=== PATIENT | male | born 1975 | race Caucasian/White ===

== ENCOUNTER 2016-12-14 21:07 | Emergency (ER) | payer BC ==
[~2016-12-14] VITALS: Ht 170.2 cm; Wt 114.0 kg
[2016-12-14 21:11] VITALS: BP 199/111; PULSE 100; RESP 18; TEMP 97.9; O2SAT 96
[2016-12-14] MEDS ORDERED: JANU50TA8 PO (21:28)
[2016-12-14] MEDS ORDERED: BYST10TA2 PO (21:28)
[2016-12-14] MEDS ORDERED: TESTPOW4 (21:28)
--- NOTE | 2016-12-14 21:44 | PD ---
HPI Chief Complaint: Skin Problem Time Seen by Provider: 21:27 Travel History International Travel<30 days: No Contact w/Intl Traveler<30days: No Traveled to known affect area: No History of Present Illness HPI Patient is a 41-year-old male who presents to emergency room with complaints of right thigh swelling. Patient reports that he normally gets testosterone injections every week and had his last injection on . Patient reports that when he had his left injection, they accidently "hit my leg vein" and caused a hematoma. Reports that since Wednesday, he has felt a bump to his anterior right thigh, reports that he thinks that this may be all testosterone oil but just wanted to make sure it was not an abscess. Patient reports no fevers or chills. Patient reports no pain to his thigh, or no increased warmth. Reports that he went to an urgent care center prior to coming to emergency room and was told to come to the emergency room for an ultrasound of his thigh for evaluation of possible abscess versus hematoma. Patient reports no calf tenderness, reports no pain at this time. Patient with no other complaints. Patient reports that he has had multiple testosterone injections in the past and has not had complications from this. [facility] Past Medical History Diabetes: Yes Patient Takes Glucophage: Yes Diminished Hearing: No Hypertension: Yes Immunizations Current: Yes Tetanus Vaccination: < 5 Years Influenza Vaccination: Yes Social History Alcohol Use: No Tobacco Use: No Substance Use: No Allergies-Medications (Allergen,Severity, Reaction): Coded Allergies: No Known Allergies (Unverified , 12/14/16) Reported Meds & Prescriptions Reported Meds & Active Scripts Active Bactrim DS (Sulfamethoxazole-Trimethoprim) 800-160 Mg Tab 1 Tab PO BID Reported Testosterone Cypionate (Testosterone Cypionate (Bulk)) 1 Pow Pow Janumet (Sitagliptin-Metformin) 50-1,000 Mg Tab 1 Tab PO BID Bystolic (Nebivolol) 10 Mg Tab 10 Mg PO DAILY Review of Systems General / Constitutional: No: Fever Eyes: No: Visual changes HENT: No: Headaches Cardiovascular: No: Chest Pain or Discomfort Respiratory: No: Shortness of Breath Gastrointestinal: No: Abdominal Pain Genitourinary: No: Dysuria Musculoskeletal: No: Pain Skin: No Rash Neurologic: No: Weakness Psychiatric: No: Depression Endocrine: No: Polydipsia Hematologic/Lymphatic: No: Easy Bruising Physical Exam Narrative GENERAL: Well-nourished, well-developed patient. SKIN: Focused skin assessment warm/dry. HEAD: Normocephalic. EYES: No scleral icterus. No injection or drainage. NECK: Supple, trachea midline. No JVD or lymphadenopathy. CARDIOVASCULAR: Regular rate and rhythm without murmurs, gallops, or rubs. RESPIRATORY: Breath sounds equal bilaterally. No accessory muscle use. GASTROINTESTINAL: Abdomen soft, non-tender, nondistended. MUSCULOSKELETAL: No cyanosis, or edema. Patient with contained swelling to right anterior thigh - no redness or erythema on exam, no calf tenderness, no obvious abscess on exam BACK: Nontender without obvious deformity. No CVA tenderness. Data Data Last Documented VS Vital Signs Date Time Temp Pulse Resp B/P Pulse Ox O2 Delivery O2 Flow Rate FiO2 12/14/16 21:11 97.9 100 18 199/111 96 Orders Us Leg Soft Tissue (12/14/16 ) MDM Medical Decision Making Medical Screen Exam Complete: Yes Emergency Medical Condition: Yes Interpretation(s) Vital Signs Date Time Temp Pulse Resp B/P Pulse Ox O2 Delivery O2 Flow Rate FiO2 12/14/16 21:11 97.9 100 18 199/111 96 Differential Diagnosis Abscess, hematoma, medication reaction, DVT Narrative Course 41-year-old male who presents to emergency room for evaluation of "lump" to anterior right thigh. Patient reports that he noticed this lump yesterday, reports that he did have a testosterone injection to his right anterior thigh on . Reports concern for possible abscess versus hematoma. Patient was sent to the emergency room by urgent care center for an ultrasound of his leg,. Patient nontoxic on evaluation, patient with no complaints. Patient with no signs of cellulitis or infection, patient with most likely a hematoma versus an abscess. An ultrasound of his soft tissue of his right thigh ordered for further evaluation of the symptoms. Last Impressions Lower Extremity Ultrasound 12/14/16 0000 Signed Impressions: Service Date/Time: Wednesday, December 14, 2016 22:08 - CONCLUSION: 2 small fluid collections as described above.. Sarthak Moses MD FACR Ultrasound of leg with 2 small fluid collections, most likely from injection site of testosterone. Patient with no signs of infection at this time. Patient with most likely hematoma to his right thigh from his testosterone injection. Plan to have patient follow up with his primary care doctor. Patient will return to ER as needed Diagnosis Primary Impression: Leg hematoma Qualified Code: S80.11XA - Leg hematoma, right, initial encounter Patient Instructions: General Instructions Additional Instructions: Please follow-up with your primary care doctor Return to emergency room as needed Return to the emergency room if symptoms worsen or progress Med/Other Pt SpecificInfo: Prescription(s) given Scripts Sulfamethoxazole-Trimethoprim (Bactrim DS)800-160 Mg Tab1 Tab PO BID #20 TAB Ref 0 Prov:Dora Hussein DO 12/14/16 Disposition: 01 DISCHARGE HOME Condition: Stable Dora Hussein DO Dec 14, 2016 21:44
[2016-12-14] MEDS ORDERED: CEPH-460 PO (22:15)
[2016-12-14] MEDS ORDERED: BACT800T5 PO (22:16)
--- NOTE | 2016-12-14 22:53 | RADHPO ---
EXAM DATE/TIME: 12/14/2016 22:08 [facility] COMPARISON: No previous studies available for comparison. INDICATIONS : Right thigh swelling after steroid injection at doctor's office on december 10, 2016. MEDICAL HISTORY : Diabetes mellitus type 2. SURGICAL HISTORY : Right arm surgery. ENCOUNTER: Initial ACUITY: 1 day PAIN SCORE: 2/10 LOCATION: Right anterior thigh. AREA EVALUATED: Right anterior mid thigh. FINDINGS: There are 2 small fluid collections as described above, nonspecific. This may well be related to the injection. Inflammatory process cannot be excluded. CONCLUSION: 2 small fluid collections as described above.. Sarthak Moses MD FACR on December 14, 2016 at 22:50 Board Certified Radiologist. This report was verified electronically.
[2016-12-14 23:07] VITALS: BP 138/84
== END 2016-12-14 23:13 | disposition home or self-care (01) ==
LOC: PHED 21:07
DX: S80.11XA Contusion of right lower leg, initial encounter (principal); I10 Essential (primary) hypertension; E11.9 Type 2 diabetes mellitus without complications; Z79.4 Long term (current) use of insulin; X58.XXXA Exposure to other specified factors, initial encounter; Y93.9 Activity, unspecified; Y92.9 Unspecified place or not applicable; Y99.9 Unspecified external cause status; T88.7XXA Unspecified adverse effect of drug or medicament, initial encounter
CPT/HCPCS: 76882